=== PATIENT | female | born 1940 | race Caucasian/White ===

== ENCOUNTER 2020-04-06 22:37 | Inpatient (IN) | payer MEDICARE, BC ==
[2020-04-06 23:40] LABS: ABSOLUTE EOSINOPHILS # (AUTO) 0.2 10^3/uL (0.0-0.6); ABSOLUTE LYMPHOCYTES (AUTO) 1.1 10^3/uL (0.5-4.7); ABSOLUTE MONOCYTES (AUTO) 0.4 10^3/uL (0.1-1.4); ABSOLUTE NEUT (AUTO) 2.9 10^3/uL (1.7-8.2); BASOPHILS % (AUTO) 0.8 % (0-2); EOSINOPHILS % (AUTO) 4.9 % (0-6); HEMATOCRIT 37.6 % (36.0-47.0); HEMOGLOBIN 13.2 g/dL (12.0-15.5); LYMPHOCYTES % (AUTO) 23.3 % (13-45); MEAN CORPUSCULAR HEMOGLOBIN 33.1 pg (27.0-33.4); MEAN CORPUSCULAR HGB CONC 35.2 g/dL (32.0-36.0); MEAN CORPUSCULAR VOLUME 94 fl (80-97); MONOCYTES % (AUTO) 9.5 % (3-13); PLATELET COUNT 225 10^3/uL (150-450); RED BLOOD COUNT 3.99 10^6/uL (3.72-5.28); RED CELL DISTRIBUTION WIDTH 12.9 % (11.5-14.0); SEGMENTED NEUTROPHILS % (AUTO) 61.5 % (42-78); TOTAL CELLS COUNTED % (AUTO) 100 %; WHITE BLOOD COUNT 4.6 10^3/uL (4.0-10.5)
[2020-04-07] LABS: ALBUMIN 3.9 g/dL (3.5-5.0); ALKALINE PHOSPHATASE 77 U/L (38-126); ASPARTATE AMINO TRANSFERASE 37 U/L (14-36); BILIRUBIN,TOTAL 0.5 mg/dL (0.2-1.3); BLOOD UREA NITROGEN 20 mg/dL (7-20); CALCIUM 9.3 mg/dL (8.4-10.2); CARBON DIOXIDE 29 mmol/L (22-30); CHLORIDE 105 mmol/L (98-107); GLUCOSE 116 mg/dL (75-110); POTASSIUM 4.3 mmol/L (3.6-5.0); TOTAL PROTEIN 6.6 g/dL (6.3-8.2)
[2020-04-07 00:05] LABS: ANION GAP 3 (5-19)
--- NOTE | 2020-04-07 00:28 | RADIOLOGY REPORT (SQ) ---
EXAM DESCRIPTION: CT HEAD WITHOUT IV CONTRAST COMPLETED DATE/TME: 04/06/2020 23:16 CLINICAL INDICATION: 79-year-old female with altered mental status. COMPARISON: None. TECHNIQUE: CT brain without contrast. This exam was performed according to our departmental dose optimization program which includes use of automated exposure control, adjustment of the mA and/or kV according to patient size and/or use of iterative reconstruction technique. FINDINGS: Multifocal regions of patchy hypoattenuation are present in a subcortical and periventricular deep white matter distribution, nonspecific; however, most likely represent small vessel ischemic disease, age indeterminate. Subcentimeter hypoattenuation within the right basal ganglia, age indeterminate however suspected sequela of prior infarction. The ventricles, sulci are prominent compatible with underlying volume loss. Slight prominence of the extra-axial frontal space may be secondary to volume loss versus subdural hygroma. The colbert-white matter differentiation is preserved. There is no mass effect, midline shift, intra- or extra-axial fluid collection/acute hemorrhage. The osseous structures are unremarkable. The paranasal sinuses and mastoid air cells are clear. IMPRESSION: 1. No acute intracranial abnormalities. Nonspecific white matter change most likely small vessel ischemic disease, age indeterminate. 2. CT is insensitive for early evaluation of acute stroke. If there is clinical concern for acute ischemia, an MRI may be considered.
[2020-04-07 00:30] LABS: APPEARANCE,URINE CLEAR; BILIRUBIN,URINE NEGATIVE (NEGATIVE); COLOR,URINE STRAW; GLUCOSE, URINE NEGATIVE (NEGATIVE); KETONES,URINE NEGATIVE (NEGATIVE); PROTEIN,URINE NEGATIVE (NEGATIVE); URINE SPECIFIC GRAVITY 1.004; UROBILINOGEN,URINE NEGATIVE mg/dL (<2.0)
--- NOTE | 2020-04-07 00:32 | RADIOLOGY REPORT (SQ) ---
AP Portable chest: 04/06/2020 11:30 PM CDT History: 79-year old patient with altered mental status. Comparison: None available Findings: The cardiomediastinal silhouette is normal in size. No pneumothorax is seen. No acute airspace opacities are seen. There is blunting of the left costophrenic angle, suggestive of a trace left effusion. Atherosclerotic calcifications are seen at the aortic arch. Impression: No acute airspace opacities are seen.
[2020-04-07] MEDS ORDERED: DEXTROSE 50%-WATER 25 GM/50 ML DISP.SYRIN IV ONE (01:00)
--- NOTE | 2020-04-07 01:07 | EKG REPORT ---
SEVERITY:- ABNORMAL ECG - SINUS RHYTHM INFERIOR INFARCT, AGE INDETERMINATE CONSIDER ANTERIOR INFARCT : Confirmed by: Aminata Lara MD 07-Apr-2020 01:05:20
[2020-04-07] MEDS ORDERED: DEXTROSE 10%-WATER 1,000 ML IV ONE (02:28)
--- NOTE | 2020-04-07 03:47 | ER Document Report ---
Entered by SIMON ESPITIA SCRIBE 04/06/20 [id number] Acting as scribe for:JAZMIN HARDING IV, MD ED General - General Chief Complaint: Altered Mental Status Stated Complaint: ALTERED MENTAL STATUS Time Seen by Provider: 04/06/20 22:56 Mode of Arrival: Medic Information source: Emergency Med Personnel Notes: This 79 year old female patient brought in by EMS from [facility] presents to the ED today with complaints of altered mental status. According to EMS, staff at the facility report that the patient has been increasingly agitated throughout the day and has periods of confusion due to her medications. Medications include: lotensin, suboxone, buspar, klonopin, pepcid, gabapentin, senokot, zocor, and trintellix. EMS reports that the patient was awake and crying upon their arrival and that the patient had a BGL of 66, so the administered 10 gm D10, which improved her mental status. EMS reports a history of anxiety, depression, and recovering alcoholism. Patient's resuscitation status is DNR since July 2019. - Related Data Allergies/Adverse Reactions: No Known Allergies Allergy (Unverified 04/06/20 23:01) Past Medical History - General Information source: Emergency Med Personnel - Social History Smoking Status: Former Smoker Cigarette use (# per day): No Chew tobacco use (# tins/day): No Smoking Education Provided: No Lives with: Other - Assisted Living: [facility] Family History: Reviewed & Not Pertinent Patient has suicidal ideation: No Patient has homicidal ideation: No Psychiatric Medical History: Reports: Hx Anxiety, Hx Depression Review of Systems - Review of Systems -: Yes ROS unobtainable due to patient's medical condition Physical Exam - Vital signs Vitals: Resp Pulse Ox 8 L 95 04/06/20 22:40 04/06/20 22:40 - General General appearance: Other - Awake, speech is slow, but she answers questions appropriately In distress: None - HEENT Head: Normocephalic, Atraumatic Eyes: Normal Pupils: PERRL - Respiratory Respiratory status: No respiratory distress Chest status: Nontender Breath sounds: Normal Chest palpation: Normal - Cardiovascular Rhythm: Regular Heart sounds: Normal auscultation Murmur: No Friction rub: No Gallop: None auscultated - Abdominal Inspection: Normal Distension: No distension Bowel sounds: Normal Tenderness: Nontender - Abdomen soft Organomegaly: No organomegaly - Back Back: Normal, Nontender - Extremities General upper extremity: Normal inspection General lower extremity: Normal inspection. No: Edema - Neurological Neuro grossly intact: Yes - No focal neurogical findings - Psychological Associated symptoms: Other - Unable to assess due to patient's medical condition - Skin Skin Temperature: Warm Skin Moisture: Dry Skin Color: Normal Course - Re-evaluation Re-evalutation: 04/07/20 03:06 Results of ED MSE discussed with patient. This MD also spoke to the patient's son and informed him that it is recommended the patient be admitted for hypoglycemia and altered mental status. The son was agreeable with this plan. - Vital Signs Vital signs: Temp Pulse Resp BP Pulse Ox 98.0 F 13 153/79 H 92 04/06/20 22:54 04/07/20 02:00 04/07/20 01:32 04/07/20 02:00 - Laboratory Result Diagrams: 04/06/20 23:21 04/06/20 23:21 Laboratory results interpreted by me: 04/06/20 04/06/20 04/06/20 22:47 23:21 23:56 Anion Gap 3 L Est GFR (MDRD) Non-Af 55 L Glucose 116 H POC Glucose 144 H AST 37 H Urine Blood SMALL H - Diagnostic Test Radiology reviewed: Reports reviewed - EKG Interpretation by Me Additional EKG results interpreted by me: 04/07/20 03:07 EKG obtained on 04/06/2020 at 2256 hrs. was interpreted by this MD. Findings normal sinus rhythm, rate 60, normal axis, P waves proceed QRS complexes, QRS complexes appear narrow, there are no obvious patterns of ST segment elevation or depression present to suggest acute myocardial ischemia or infarction. Impression: Normal sinus rhythm with nonspecific ST segments. - Consults dr. pedro Time consulted: 03:09 - dr. pedro agreed to admit pt to hospital for hypoglycemia, altered mental status, observation, medical floor Reason for consultation: 04/07/20 03:09 ams, recurrent decline in blood glucose level, not on anti-hyperglycemic medication Discharge - Discharge Clinical Impression: Hypoglycemia Altered mental status Qualifiers: Altered mental status type: unspecified Qualified Code(s): R41.82 - Altered mental status, unspecified Condition: Stable Disposition: ADMITTED OBSERVATION Admitting Provider: Nereida (Hospitalist) Unit Admitted: Medical Floor I personally performed the services described in the documentation, reviewed and edited the documentation which was dictated to the scribe in my presence, and it accurately records my words and actions.
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
[2020-04-07] MEDS ORDERED: IPRATROPIUM/ALBUTEROL 0.5-2.5 MG/3 ML AMPUL NEB PRN (03:55)
[2020-04-07] MEDS ORDERED: DEXTROSE 5%-NORMAL SALINE 1,000 ML IV PRN (03:55)
[2020-04-07] MEDS ORDERED: ACETAMINOPHEN 325 MG TABLET PO PRN (03:55)
[2020-04-07] MEDS ORDERED: DEXTROSE 50%-WATER 25 GM/50 ML DISP.SYRIN IV PRN ×2 (03:58)
[2020-04-07] MEDS ORDERED: DEXTROSE 40% GEL 15 GM TUBE PO PRN ×2 (03:58)
[2020-04-07] MEDS ORDERED: GLUCAGON,HUMAN RECOMB 1 MG INJ IM PRN (03:58)
[2020-04-07] MEDS ORDERED: HYDRALAZINE HCL INJ/PF 20 MG/1 ML SDV IV PRN (03:59)
[2020-04-07] MEDS ORDERED: METOPROLOL TARTRATE PF/INJ 5 MG/5 ML SDV IV PRN (03:59)
[2020-04-07 04:37] LABS: FREE T4 (FREE THYROXINE) 1.06 ng/dL (0.78-2.19)
[2020-04-07 04:51] LABS: THYROID STIMULATING HORMONE 2.75 uIU/mL (0.47-4.68)
[2020-04-07] MEDS: INSULIN LISPRO 100 UNIT/ML 3 ML VIAL SUBCUT SCH ×4 (08:51→22:15)
[2020-04-07] MEDS: BENAZEPRIL HCL 20 MG TABLET PO SCH ×2 (09:46→10:04)
[2020-04-07] MEDS: UMECLIDINIUM BROMIDE 62.5 MCG/DOSE IH SCH (09:47)
[2020-04-07] MEDS: SENNOSIDES/DOCUSATE 8.6-50 MG 1 EACH TABLET PO SCH (09:47)
[2020-04-07] MEDS: BUSPIRONE HCL 10 MG TABLET PO SCH ×3 (09:47→17:40)
[2020-04-07] MEDS: FAMOTIDINE 20 MG TABLET PO SCH ×3 (09:47→22:15)
[2020-04-07] MEDS: GUAIFENESIN 600 MG TABLET.SA PO SCH ×3 (09:47→22:15)
[2020-04-07] MEDS: ENOXAPARIN SODIUM INJ 40 MG/0.4 ML DISP.SYRIN SUBCUT SCH (09:48)
[2020-04-07] MEDS ORDERED: [UNRECOGNIZED DRUG - OTHER] SL SCH (10:00)
[2020-04-07] MEDS ORDERED: BUPRENORPHINE HCL SL SCH (10:00)
[2020-04-07] MEDS ORDERED: NALOXONE HCL SL SCH (10:00)
[2020-04-07] MEDS ORDERED: (PENDING PHARMACY ID) (Sennosides [Senna] 8.6 MG) PO SCH (10:00)
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
[2020-04-07] MEDS: SIMVASTATIN 40 MG TABLET PO SCH (22:11)
[2020-04-07] MEDS: HALOPERIDOL LACTATE INJ 5 MG/1 ML VIAL IV PRN (22:11)
[2020-04-08] MEDS: HALOPERIDOL LACTATE INJ 5 MG/1 ML VIAL IV PRN ×3 (02:10→20:12)
[2020-04-08 07:12] LABS: ABSOLUTE LYMPHOCYTES (AUTO) 0.9 10^3/uL (0.5-4.7); ABSOLUTE MONOCYTES (AUTO) 0.4 10^3/uL (0.1-1.4); ABSOLUTE NEUT (AUTO) 4.3 10^3/uL (1.7-8.2); BASOPHILS % (AUTO) 0.6 % (0-2); EOSINOPHILS % (AUTO) 0.8 % (0-6); HEMATOCRIT 41.2 % (36.0-47.0); HEMOGLOBIN 13.7 g/dL (12.0-15.5); LYMPHOCYTES % (AUTO) 15.2 % (13-45); MEAN CORPUSCULAR HEMOGLOBIN 31.2 pg (27.0-33.4); MEAN CORPUSCULAR HGB CONC 33.2 g/dL (32.0-36.0); MEAN CORPUSCULAR VOLUME 94 fl (80-97); MONOCYTES % (AUTO) 7.8 % (3-13); PLATELET COUNT 223 10^3/uL (150-450); RED BLOOD COUNT 4.37 10^6/uL (3.72-5.28); RED CELL DISTRIBUTION WIDTH 12.9 % (11.5-14.0); SEGMENTED NEUTROPHILS % (AUTO) 75.6 % (42-78); TOTAL CELLS COUNTED % (AUTO) 100 %; WHITE BLOOD COUNT 5.7 10^3/uL (4.0-10.5)
[2020-04-08 07:32] LABS: ALKALINE PHOSPHATASE 73 U/L (38-126); ANION GAP 6 (5-19); ASPARTATE AMINO TRANSFERASE 38 U/L (14-36); BILIRUBIN,TOTAL 0.6 mg/dL (0.2-1.3); BLOOD UREA NITROGEN 15 mg/dL (7-20); CALCIUM 9.7 mg/dL (8.4-10.2); CARBON DIOXIDE 27 mmol/L (22-30); CHLORIDE 105 mmol/L (98-107); GLUCOSE 97 mg/dL (75-110); POTASSIUM 4.1 mmol/L (3.6-5.0); TOTAL PROTEIN 6.6 g/dL (6.3-8.2)
[2020-04-08] MEDS: INSULIN LISPRO 100 UNIT/ML 3 ML VIAL SUBCUT SCH ×4 (08:35→22:12)
[2020-04-08] MEDS: FAMOTIDINE 20 MG TABLET PO SCH ×2 (10:07→21:39)
[2020-04-08] MEDS: GUAIFENESIN 600 MG TABLET.SA PO SCH ×2 (10:07→21:39)
[2020-04-08] MEDS: ENOXAPARIN SODIUM INJ 40 MG/0.4 ML DISP.SYRIN SUBCUT SCH (10:07)
[2020-04-08] MEDS: UMECLIDINIUM BROMIDE 62.5 MCG/DOSE IH SCH (10:07)
[2020-04-08] MEDS: BUSPIRONE HCL 10 MG TABLET PO SCH ×2 (10:07→17:05)
[2020-04-08] MEDS: BENAZEPRIL HCL 20 MG TABLET PO SCH (10:07)
[2020-04-08] MEDS: SENNOSIDES/DOCUSATE 8.6-50 MG 1 EACH TABLET PO SCH (10:08)
--- NOTE | 2020-04-08 11:49 | PDOC PROGRESS REPORT ---
Subjective Progress Note for:: 04/08/20 Subjective:: Patient was agitated overnight and had to be given medication and put in restraints for her agitation. She is more calm this morning. She requires assistance with her meals but eats fairly well when assisted. Vital signs been stable. Reason For Visit: HYPOGLYCEMIA, ALTERED MENTAL STATUS Physical Exam Vital Signs: Temp Pulse Resp BP Pulse Ox 97.5 F 55 L 16 150/71 H 98 04/08/20 07:51 04/08/20 07:51 04/08/20 07:51 04/08/20 07:51 04/08/20 07:51 Intake & Output 04/07/20 04/08/20 04/09/20 06:59 06:59 06:59 Intake Total 300 Output Total 1100 Balance -800 Weight 53.1 kg 59.9 kg General appearance: PRESENT: no acute distress, disheveled Respiratory exam: PRESENT: clear to auscultation mikayla, symmetrical, unlabored. ABSENT: accessory muscle use, chest wall tenderness, crackles, prolonged expiratory phas, rhonchi, tachypnea, wheezes Cardiovascular exam: PRESENT: RRR, +S1, +S2 Pulses: PRESENT: normal carotid pulses Vascular exam: PRESENT: normal capillary refill GI/Abdominal exam: PRESENT: normal bowel sounds, soft. ABSENT: distended, guarding, rebound, tenderness Extremities exam: ABSENT: clubbing, pedal edema Musculoskeletal exam: PRESENT: normal inspection. ABSENT: deformity Neurological exam: PRESENT: awake, oriented to person. ABSENT: oriented to place, oriented to situation Psychiatric exam: PRESENT: flat affect Skin exam: PRESENT: dry, warm Results Laboratory Results: 04/08/20 06:29 04/08/20 06:29 04/08/20 04/08/20 06:29 06:29 WBC 5.7 RBC 4.37 Hgb 13.7 Hct 41.2 MCV 94 MCH 31.2 MCHC 33.2 RDW 12.9 Plt Count 223 Seg Neutrophils % 75.6 Sodium 138.4 Potassium 4.1 Chloride 105 Carbon Dioxide 27 Anion Gap 6 BUN 15 Creatinine 0.92 Est GFR ( Amer) > 60 Glucose 97 Calcium 9.7 Total Bilirubin 0.6 AST 38 H Alkaline Phosphatase 73 Total Protein 6.6 Albumin 4.0 Impressions: Head CT 04/06/20 23:16 IMPRESSION: 1. No acute intracranial abnormalities. Nonspecific white matter change most likely small vessel ischemic disease, age indeterminate. 2. CT is insensitive for early evaluation of acute stroke. If there is clinical concern for acute ischemia, an MRI may be considered. Assessment and Plan - Diagnosis (1) Dementia Qualifiers: Dementia type: unspecified type Dementia behavioral disturbance: with be havioral disturbance Qualified Code(s): F03.91 - Unspecified dementia with behavioral disturbance Is this a current diagnosis for this admission?: Yes Plan: I suspect her entire presentation is due to a progression in her dementia. For her agitation, were going to give her some Zyprexa daily. She has PRN Haldol o rdered but has not needed it since last night. We will get her out of soft limb restraints as soon as possible. She is in them for her safety and for the safety of the staff. (2) Hypertension Qualifiers: Hypertension type: essential hypertension Qualified Code(s): I10 - Essential (primary) hypertension Is this a current diagnosis for this admission?: Yes Plan: She has been refusing to take her medications by mouth (3) Hypoglycemia Is this a current diagnosis for this admission?: Yes Plan: I do not think she was ever hypoglycemic. A blood sugar of 66 in the fasting state for a nondiabetic would be within the normal range. Patient is not diabetic and she has been eating fine. I do not think that hypoglycemia had anything to do with her presentation. - Time Time Spent with patient: 15-24 minutes
[2020-04-08] MEDS: SIMVASTATIN 40 MG TABLET PO SCH (21:40)
[2020-04-08] MEDS ORDERED: LORAZEPAM INJ 2 MG/1 ML VIAL IV PRN (21:46)
[2020-04-08] MEDS ORDERED: OLANZAPINE 5 MG TABLET PO SCH (22:00)
[2020-04-09] MEDS: HALOPERIDOL LACTATE INJ 5 MG/1 ML VIAL IV PRN (00:23)
[2020-04-09] MEDS: INSULIN LISPRO 100 UNIT/ML 3 ML VIAL SUBCUT SCH (07:48)
[2020-04-09] MEDS: BUSPIRONE HCL 10 MG TABLET PO SCH (09:04)
[2020-04-09] MEDS: BENAZEPRIL HCL 20 MG TABLET PO SCH (09:04)
[2020-04-09] MEDS: UMECLIDINIUM BROMIDE 62.5 MCG/DOSE IH SCH (09:04)
[2020-04-09] MEDS: SENNOSIDES/DOCUSATE 8.6-50 MG 1 EACH TABLET PO SCH (09:04)
[2020-04-09] MEDS: GUAIFENESIN 600 MG TABLET.SA PO SCH (09:04)
[2020-04-09] MEDS: ENOXAPARIN SODIUM INJ 40 MG/0.4 ML DISP.SYRIN SUBCUT SCH (09:04)
[2020-04-09] MEDS: FAMOTIDINE 20 MG TABLET PO SCH (09:04)
[2020-04-09 11:51] VITALS: BP 145/63
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
== END 2020-04-09 12:57 | disposition home health service (06) | DRG 884 ==
LOC: ER 22:37 → INTOOBSV 04-07 04:13 → EH 04-07 04:13 → 3N 04-07 06:34 → OBSVTOIN 04-08 15:17 → 3S 04-08 20:26
PROVIDERS: ADMIT Internal Medicine; ATTEND Family Medicine
DX: F03.91 Unspecified dementia, unspecified severity, with behavioral disturbance (principal); E16.2 Hypoglycemia, unspecified; I10 Essential (primary) hypertension; F41.9 Anxiety disorder, unspecified; Z66 Do not resuscitate; Z03.818 Encounter for observation for suspected exposure to other biological agents ruled out
CPT/HCPCS: 36415; 70450; 71045; 80053; 80307; 81001; 82533; 82962; 84439; 84443; 85025; 87635; 93005; 93010; 96361; 96374; 99285; C9803; G0378; J0360; J1630; J1650; J2060; J3490